=== PATIENT | female | born 1940 | race Caucasian/White ===

== ENCOUNTER 2017-09-21 08:16 | Inpatient (IN) ==
[2017-09-21] MEDS ORDERED: methylPREDNISolone SOD SUC 125 MG/2 ML VIAL IV STA (08:35)
[2017-09-21 08:53] LABS: Basophils # 0.1 10*3/uL (0.0-0.2); Basophils % 0.7 % (0.0-0.8); Eosinophils # 0.3 10*3/uL (0.0-0.87); Hematocrit 41.1 VOL% (35.7-47.0); Hemoglobin 13.2 GM/DL (12.0-16.0); Immature Granulocytes Absolute 0.17 #; Lymphocytes % 23.1 % (21.3-54.2); Mean Corpuscular HGB Conc 32.1 GM/DL (32-36); Mean Corpuscular Hemoglobin 31 PG (27-34); Mean Corpuscular Volume 97.6 FL (87-102); Mean Platelet Volume 11.3 FL (9.6-12.0); Monocytes # 1.1 10*3/uL (0.11-0.8); Monocytes % 6.6 % (1.7-12.7); Neutrophils # 11.5 10*3/uL (1.4-7.4); Neutrophils % 66.6 % (38.7-73.9); Platelet Count 390 T/CUMM (130-400); Red Blood Count 4.21 MC/CUMM (3.8-5.5); Red Cell Distribution Width 15.1 % (9.3-17.3); White Blood Count 17.3 T/CUMM (4-12)
[2017-09-21] MEDS ORDERED: ALBUTEROL 2.5 MG/3 ML NEB RESP TX SCH (09:00)
[2017-09-21 09:01] LABS: INR 0.9; PT Patient Result 9.7 SECS; Partial Thromboplastin Time 26.6 SECS (0-40)
[2017-09-21] MEDS ORDERED: methylPREDNISolone SOD SUC 125 MG/2 ML VIAL ONE (09:03)
[2017-09-21 09:11] LABS: Lactic Acid 6.2 MMOL/L (0.4-2.0)
[2017-09-21 09:16] LABS: Alanine Aminotransferase 47 U/L (13-56); Albumin 3.6 G/DL (3.4-5.0); Alkaline Phosphatase 68 U/L (45-117); Aspartate Amino Transferase 44 U/L (0-37); Blood Urea Nitrogen 22 MG/DL (7-18); Calcium 9.3 MG/DL (8.5-10.1); Glucose 196 MG/DL (74-106); Osmolality,Calculated 284.5 MOS/KG (273-304); Potassium 4.4 MMOL/L (3.5-5.1); Sodium 139 MMOL/L (136-145); Total Protein 7.1 G/DL (6.4-8.3); Troponin I Only < 0.015 NG/ML (0.00-0.045)
[2017-09-21] MEDS ORDERED: LEVOFLOXACIN INJ 500 MG in PREMIX 1 EACH IV STA (09:43)
[2017-09-21] MEDS ORDERED: LEVOFLOXACIN INJ 100 ML IV ONE (10:00)
[2017-09-21 10:04] LABS: ABG Base Excess 0.8 MMOL/L (-2.5-2.5); ABG HCO3 25.1 MMOL/L (20-26); ABG Oxygen Saturation 99.7 % (95-100); ABG PCO2 58.3 MM HG (35-48); ABG PH 7.299 (7.35-7.45); ABG TCO2 25.6 MMOL/L (23-27)
[2017-09-21] MEDS ORDERED: ACETAMINOPHEN 325 MG TABLET PO PRN (10:18)
[2017-09-21] MEDS ORDERED: MORPHINE 2 MG/1 ML SYRINGE IV PRN (10:18)
[2017-09-21] MEDS ORDERED: diphenhydrAMINE CAP 25 MG CAPSULE PO PRN (10:18)
[2017-09-21] MEDS ORDERED: ONDANSETRON 4 MG/2 ML VIAL IV PRN (10:18)
[2017-09-21] MEDS ORDERED: DOCUSATE SODIUM 100 MG CAPSULE PO PRN (10:18)
[2017-09-21] MEDS ORDERED: guaiFENesin/DM ER 600-30 MG TABLET PO PRN (10:18)
[2017-09-21] MEDS ORDERED: hydroCHLOROthiazide 12.5 MG CAPSULE PO SCH (10:30)
[2017-09-21] MEDS ORDERED: LOSARTAN 50 MG TABLET PO SCH (10:30)
[2017-09-21] MEDS ORDERED: amLODIPine 5 MG TABLET PO SCH (10:30)
[2017-09-21] MEDS ORDERED: SODIUM CHLORIDE 0.9% 1,500 ML IV ONE (10:36)
[2017-09-21] MEDS ORDERED: GLUCAGON 1 MG VIAL IM PRN (11:22)
[2017-09-21] MEDS ORDERED: DEXTROSE 50% 25 GM/50 ML VIAL IV PRN (11:22)
[2017-09-21] MEDS ORDERED: ALBUTEROL/IPRATROPIUM 3 ML NEB RESP TX PRN (12:34)
[2017-09-21] MEDS ORDERED: PIPERACILLIN/TAZOBACTAM 3,375 MG VIAL IV ONE (13:40)
[2017-09-21] MEDS: PANTOPRAZOLE 40 MG TABLET PO SCH (13:55)
[2017-09-21] MEDS: SODIUM CHLORIDE 0.9% 1,000 ML IV SCH ×2 (14:04→17:48)
[2017-09-21] MEDS: methylPREDNISolone SOD SUC 40 MG/1 ML VIAL IV SCH ×2 (14:05→21:38)
[2017-09-21] MEDS: ENOXAPARIN 40 MG/0.4 ML SYRINGE SUBCUT SCH (14:07)
[2017-09-21] MEDS: PIPERACILLIN/TAZOBACTAM 3,375 MG in SODIUM CHLORIDE 0.9% 100 ML IV SCH ×2 (14:15→21:39)
[2017-09-21] MEDS: ALBUTEROL/IPRATROPIUM 3 ML NEB RESP TX SCH ×2 (14:35→19:03)
[2017-09-21] MEDS: INSULIN LISPRO 100 UNIT/ML SUBCUT SCH (17:23)
[2017-09-21] MEDS: MONTELUKAST 10 MG TABLET PO SCH (17:23)
[2017-09-21 18:14] LABS: Troponin I Only 0.025 NG/ML (0.00-0.045)
[2017-09-21] MEDS: DONEPEZIL 5 MG TABLET PO SCH (21:39)
[2017-09-21] MEDS: MIRTAZAPINE 15 MG TABLET PO SCH (21:39)
[2017-09-22] MEDS: ALBUTEROL/IPRATROPIUM 3 ML NEB RESP TX SCH ×4 (00:46→19:41)
[2017-09-22] MEDS: SODIUM CHLORIDE 0.9% 1,000 ML IV SCH ×2 (01:51→13:37)
[2017-09-22 03:19] LABS: ABG Base Excess 0.9 MMOL/L (-2.5-2.5); ABG HCO3 26.9 MMOL/L (20-26); ABG Oxygen Saturation 96.9 % (95-100); ABG PCO2 49.7 MM HG (35-48); ABG PH 7.352 (7.35-7.45); ABG TCO2 28.5 MMOL/L (23-27); Allen Test Positive; Pt O2 Delivery Device Venturi Mask
[2017-09-22 04:06] LABS: Basophils % 0.1 % (0.0-0.8); Hematocrit 31.4 VOL% (35.7-47.0); Immature Granulocytes % 0.6 %; Immature Granulocytes Absolute 0.04 #; Lymphocytes # 0.6 10*3/uL (1.4-4.0); Lymphocytes % 9.3 % (21.3-54.2); Mean Corpuscular HGB Conc 31.8 GM/DL (32-36); Mean Corpuscular Hemoglobin 31 PG (27-34); Mean Corpuscular Volume 96.3 FL (87-102); Mean Platelet Volume 10.6 FL (9.6-12.0); Monocytes # 0.1 10*3/uL (0.11-0.8); Monocytes % 1.6 % (1.7-12.7); Neutrophils # 5.9 10*3/uL (1.4-7.4); Neutrophils % 88.4 % (38.7-73.9); Platelet Count 296 T/CUMM (130-400); Red Blood Count 3.26 MC/CUMM (3.8-5.5); Red Cell Distribution Width 14.8 % (9.3-17.3); White Blood Count 6.7 T/CUMM (4-12)
[2017-09-22 04:25] LABS: PT Patient Result 10.7 SECS; Partial Thromboplastin Time 27.8 SECS (0-40)
[2017-09-22 04:51] LABS: Calcium 7.4 MG/DL (8.5-10.1); Osmolality,Calculated 283.3 MOS/KG (273-304); Potassium 3.4 MMOL/L (3.5-5.1); Risk Ratio 2.45; Thyroid Stimulating Hormone 20.2 uIU/ml (0.358-3.74); VLDL CHOLESTEROL 11.4 MG/DL
[2017-09-22] MEDS: PIPERACILLIN/TAZOBACTAM 3,375 MG in SODIUM CHLORIDE 0.9% 100 ML IV SCH ×3 (05:48→21:16)
[2017-09-22] MEDS: methylPREDNISolone SOD SUC 40 MG/1 ML VIAL IV SCH ×3 (05:49→21:16)
[2017-09-22] MEDS: INSULIN LISPRO 100 UNIT/ML SUBCUT SCH ×2 (08:14→16:05)
[2017-09-22] MEDS ORDERED: MAGNESIUM SULF RIDER 2 GM in PREMIX 1 EACH IV PRN (09:32)
[2017-09-22] MEDS ORDERED: POTASSIUM CHLORIDE 20 MEQ TABLET PO ONE (09:32)
[2017-09-22] MEDS ORDERED: MAGNESIUM SULF RIDER 4 GM in PREMIX 1 EACH IV PRN (09:32)
[2017-09-22] MEDS: PANTOPRAZOLE 40 MG TABLET PO SCH (10:17)
[2017-09-22] MEDS: ENOXAPARIN 40 MG/0.4 ML SYRINGE SUBCUT SCH (10:17)
[2017-09-22] MEDS: MONTELUKAST 10 MG TABLET PO SCH (10:17)
[2017-09-22] MEDS: LEVOTHYROXINE 100 MCG TABLET PO SCH (11:42)
[2017-09-22 11:51] LABS: Apearance,Urine CLEAR (Clear); Bilirubin,Urine Negative (Negative); Blood, Urine Negative (Negative); Glucose,Urine (UA) 150 mg/dL (Negative); Ketones,Urine Negative (Negative); Nitrite,Urine Negative (Negative); Protein,Urine Negative; Squamous Epithelial Cell,Urine Occasional /HPF (0-10); Urine Color Straw (Yellow); Urine Specific Gravity 1.012 (1.001-1.035); Urine Urobilinogen < 2.0 EU/DL (0.2-1.0); WBC,Urine <1 /HPF (0-6)
[2017-09-22] MEDS ORDERED: ATORVASTATIN 20 MG TABLET PO SCH (21:00)
[2017-09-22] MEDS: DONEPEZIL 5 MG TABLET PO SCH (21:16)
[2017-09-22] MEDS: MIRTAZAPINE 15 MG TABLET PO SCH (21:16)
[2017-09-22] MEDS ORDERED: ZALEPLON 5 MG CAPSULE PO PRN (23:48)
[2017-09-23] MEDS: ALBUTEROL/IPRATROPIUM 3 ML NEB RESP TX SCH ×3 (00:51→13:00)
[2017-09-23 05:34] LABS: Calcium 7.4 MG/DL (8.5-10.1); Osmolality,Calculated 286.1 MOS/KG (273-304)
[2017-09-23] MEDS: methylPREDNISolone SOD SUC 40 MG/1 ML VIAL IV SCH (05:35)
[2017-09-23] MEDS: PIPERACILLIN/TAZOBACTAM 3,375 MG in SODIUM CHLORIDE 0.9% 100 ML IV SCH (05:36)
[2017-09-23] MEDS: LEVOTHYROXINE 100 MCG TABLET PO SCH (06:48)
[2017-09-23] MEDS ORDERED: methylPREDNISolone SOD SUC 40 MG/1 ML VIAL IV SCH (07:30)
[2017-09-23] MEDS: MONTELUKAST 10 MG TABLET PO SCH (08:32)
[2017-09-23] MEDS: PANTOPRAZOLE 40 MG TABLET PO SCH (08:33)
[2017-09-23] MEDS ORDERED: FLUoxetine 20 MG CAPSULE PO SCH (09:00)
[2017-09-23] MEDS: INSULIN LISPRO 100 UNIT/ML SUBCUT SCH (11:13)
[2017-09-23] MEDS: ENOXAPARIN 40 MG/0.4 ML SYRINGE SUBCUT SCH (11:14)
[2017-09-23 12:23] VITALS: BP 141/71
[2017-09-23 14:27] LABS: Procalcitonin, S < 0.10 ng/mL (<=0.15)
== END 2017-09-23 15:35 | disposition home or self-care (01) | DRG 871 ==
LOC: N.ED 08:16 → N.EDINP 10:18 → N.TELES 16:48
PROVIDERS: ADMIT Family Medicine; ATTEND Family Medicine